=== PATIENT | female | born 1990 | race Caucasian/White ===

== ENCOUNTER 2018-08-04 19:09 | Observation (INO) | payer OTHER ==
[2018-08-04 20:45] LABS: Urine Blood 2+ (NEG); Urine Glucose NEGATIVE (NEG); Urine Protein NEGATIVE (NEG)
[2018-08-04 21:32] LABS: Absolute Monocytes 0.6 K/uL (0.1-1.3); Absolute Neutrophil 6.2 K/uL (1.8-8.0); Basophils % 0.6 % (0-1.3); Eosinophils % 0.7 % (0-4.4); Hematocrit 38.7 % (36.0-45.0); Lymphocytes % 22.4 % (15.3-44.8); Monocytes % 6.6 % (3.3-12.3); RBC Red Blood Cell Count 4.19 M/uL (3.86-4.86)
--- NOTE | 2018-08-04 21:36 | RAD REPORT ---
EXAM DESCRIPTION: US - Transvaginal OB - 08/04/2018 9:09 pm CLINICAL HISTORY: with vaginal bleeding COMPARISON: August 04, 2018 FINDINGS: Gestational sac and pole are again demonstrated within the endometrium. Cardiac activity is not visualized within the embryo on the current examination. [place]-rump length eq uals approximately 4.2 millimeters Estimated gestational age 6 weeks 1 day EDWARD 03/29/2019 The cervical canal has become heterogeneous measuring 1.1 centimeter. The ovaries are normal in size and echotexture An adnexal mass is not seen No significant free fluid IMPRESSION: Since an ultrasound earlier today cardiac activity is no longer visualized within the fe tash pole. Since cardiac activity was seen on the prior ultrasound this is suspicious for demise . However, due to the small size of the embryo it is possible that the cardiac activity is not seen s econdary to technical factors and the embryo is viable. As a precaution it is recommended that the pa tient have a followup endovaginal sonogram in 1 week for re-evaluation.
[2018-08-04] MEDS ORDERED: OXYTOCIN 10 UNIT/ML ML IV ONE (21:56)
[2018-08-04] MEDS ORDERED: ONDANSETRON 4 MG/2 ML VIAL ONE (21:57)
[2018-08-04] MEDS ORDERED: MORPHINE 2 MG/ML SYR ONE (21:57)
[2018-08-04 22:01] LABS: BUN Blood Urea Nitrogen 11 mg/dL (7-18); Bicarbonate 24 mmol/L (21-32); Glucose Level 87 mg/dL (74-106); HCG, Quantitative 2534 mIU/mL (1-3); Potassium 3.8 mmol/L (3.5-5.1); Sodium Level 141 mmol/L (136-145)
[2018-08-04] MEDS ORDERED: OXYTOCIN/LR 0 UNIT/0 ML BAG IV ONE (22:11)
--- NOTE | 2018-08-04 22:57 | ER ---
Nurse's Notes [facility] Name: Sofie Henson Age: 27 yrs Sex: Female : 1990 Arrival Date: 08/04/2018 Time: 19:10 Bed 27 Private MD: Diagnosis: Incomplete spontaneous without complication Presentation: 08/04 19:36 Presenting complaint: Patient states: "I'm and I've been lightly spotting aj since Tuesday. I saw Dr. Moralez this morning and I had a vaginal ultrasound and everything looked okay, but he told me that if the bleeding got worse to come here, it was like a water fall at 6:15 so we came here. I'm having some moderate cramping. " Patient reports that she is currently 6 weeks . Transition of care: patient was not received from another setting of care. Onset of symptoms was August 04, 2018. Risk Assessment: Do you want to hurt yourself or someone else? Patient reports no desire to harm self or others. Initial Sepsis Screen: Does the patient meet any 2 criteria? No. Patient's initial sepsis screen is negative. Does the patient have a suspected source of infection? No. Patient's initial sepsis screen is negative. Care prior to arrival: None. 19:36 Method Of Arrival: Ambulatory [facility] 19:36 Acuity: VERONICA 3 aj1 Triage Assessment: 19:39 General: Appears in no apparent distress. comfortable, Behavior is calm, cooperative, aj1 appropriate for age. Pain: Complains of pain in right lower quadrant and left lower quadrant Pain currently is 7 out of 10 on a pain scale. Quality of pain is described as crampy. Neuro: Level of Consciousness is awake, alert, obeys commands, Oriented to person, place, time, situation. Cardiovascular: Patient's skin is warm and dry. Respiratory: Airway is patent Respiratory effort is even, unlabored, Respiratory pattern is regular, symmetrical. GI: No signs and/or symptoms were reported involving the gastrointestinal system. : Parent/caregiver report the patient having vaginal bleeding that is bright red with clots heavy flow. 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 - Social history:: Smoking status: Patient/guardian denies using tobacco. - Ebola Screening: : Patient denies travel to an Ebola-affected area in the 21 days before illness onset. Screenin:26 Abuse screen: Denies threats or abuse. Denies injuries from another. Nutritional mg2 screening: No deficits noted. Tuberculosis screening: No symptoms or risk factors identified. Fall Risk IV access (20 points). Assessment: 20:25 General: Appears in no apparent distress. comfortable, Behavior is calm, cooperative. mg2 Pain: Complains of pain in abdomen Pain does not radiate. Pain currently is 2 out of 10 on a pain scale. Quality of pain is described as crampy, Pain began gradually, 1 day ago. Neuro: Level of Consciousness is awake, alert, obeys commands, Oriented to person, place, time, situation. Cardiovascular: Capillary refill < 3 seconds Patient's skin is warm and dry. Respiratory: Airway is patent Respiratory effort is even, unlabored, Respiratory pattern is regular, symmetrical. GI: No signs and/or symptoms were reported involving the gastrointestinal system. : Urine is blood tinged, Reports vaginal bleeding that is light flow, spotty, since yesterday. EENT: No signs and/or symptoms were reported regarding the EENT system. Derm: Skin is intact, is healthy with good turgor, Skin is pink, warm \\T\\ dry. normal. Musculoskeletal: Circulation, motion, and sensation intact. Capillary refill < 3 seconds. 23:01 Reassessment: patient agreed to be admitted to the hospital for observation. mg2 Vital Signs: 19:39 BP 126 / 94; Pulse 80; Resp 18; Temp 97.9; Pulse Ox 100% on R/A; Weight 83.91 kg (R); aj1 Height 5 ft. 10 in. (177.80 cm) (R); Pain 7/10; 21:36 BP 127 / 86; Pulse 81; Resp 18; Pulse Ox 100% on R/A; Pain 3/10; mg2 23:42 BP 121 / 78; Pulse 82; Resp 18; Pulse Ox 100% on R/A; Pain 0/10; mg2 19:39 Body Mass Index 26.54 (83.91 kg, 177.80 cm) aj1 ED Course: 19:10 Patient arrived in ED. do 19:37 Triage completed. aj1 19:39 Arm band placed on Patient placed in an exam room. aj1 19:45 Isaías Rodas MD is Attending Physician. tw4 19:58 Isiah Huizar, MALVIN is Primary Nurse. mg2 20:27 Patient has correct armband on for positive identification. Placed in gown. Call light mg2 in reach. Side rails up X2. Pulse ox on. NIBP on. Door closed. Noise minimized. Warm blanket given. 20:27 Inserted saline lock: 20 gauge in right antecubital area, using aseptic technique. mg2 Blood collected. 21:09 US Transvaginal Ob In Process Unspecified. EDMS 22:47 Assist provider with pelvic exam: Set up pelvic tray. Performed by Isaías Rodas MD mg2 Patient tolerated well. moderate vaginal bleeding/clots, no tissues noted. 22:56 Kei Pak MD is Hospitalizing Provider. tw4 23:41 Patient admitted, IV remains in place. mg2 Administered Medications: 21:57 Drug: Zofran 4 mg Route: IVP; Site: right antecubital; mg2 22:50 Follow up: Response: No adverse reaction; Marked relief of symptoms mg2 21:58 Drug: morphine 2 mg Route: IVP; Site: right antecubital; mg2 22:52 Follow up: Response: No adverse reaction; Marked relief of symptoms mg2 23:42 Not Given (Physician Discretion): Pitocin 20 units IV at calculated rate once mg2 Outcome: 22:56 Decision to Hospitalize by Provider. tw4 23:41 Admitted to L \\T\\ D, accompanied by tech, via wheelchair, room 279, with chart, Report mg2 called to MALVIN Garcia 23:41 Condition: stable 23:41 Instructed on the need for admit, Demonstrated understanding of instructions. 08/05 00:12 Patient left the ED. mg2 Signatures: Dispatcher [employer] EDMS Massiel Matamoros RN RN aj1 Erin Torres Terrence, MD MD tw4 Isiah Huizar RN RN mg2
--- NOTE | 2018-08-04 22:57 | EDPHYS ---
Physician Documentation [facility] Name: Sofie Henson Age: 27 yrs Sex: Female : 1990 Arrival Date: 08/04/2018 Time: 19:10 Bed 27 Private MD: ED Physician Isaías Rodas HPI: 08/04 23:35 This 27 yrs old Female presents to ER via Ambulatory with complaints of tw4 Possible Miscarriage. 23:35 The patient presents with vaginal bleeding that is moderate. Onset: The tw4 symptoms/episode began/occurred today. Modifying factors: The symptoms are alleviated by nothing, the symptoms are aggravated by nothing. Associated signs and symptoms: The patient has no apparent associated signs or symptoms. Severity of symptoms: At their worst the symptoms were moderate, in the emergency department the symptoms are unchanged. The patient has not experienced similar symptoms in the past. 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 - Social history:: Smoking status: Patient/guardian denies using tobacco. - Ebola Screening: : Patient denies travel to an Ebola-affected area in the 21 days before illness onset. ROS: 23:35 Positive for vaginal bleeding, Negative for injury or acute deformity, urinary tw4 symptoms, urinary frequency, vaginal itching, menstrual abnormality. 23:35 Constitutional: Negative for fever, chills, and weight loss, Eyes: Negative for injury, pain, redness, and discharge, Cardiovascular: Negative for chest pain, palpitations, and edema, Respiratory: Negative for shortness of breath, cough, wheezing, and pleuritic chest pain, Abdomen/GI: Negative for abdominal pain, nausea, vomiting, diarrhea, and constipation, Back: Negative for injury and pain. 23:35 : Positive for vaginal bleeding, Negative for injury or acute deformity, urinary symptoms, urinary frequency, small amounts, vaginal discharge, vaginal itching. Exam: 23:35 Constitutional: This is a well developed, well nourished patient who is awake, alert, tw4 and in no acute distress. Head/Face: Normocephalic, atraumatic. Chest/axilla: Normal chest wall appearance and motion. Nontender with no deformity. No lesions are appreciated. Cardiovascular: Regular rate and rhythm with a normal S1 and S2. No gallops, murmurs, or rubs. Normal PMI, no JVD. No pulse deficits. Respiratory: Lungs have equal breath sounds bilaterally, clear to auscultation and percussion. No rales, rhonchi or wheezes noted. No increased work of breathing, no retractions or nasal flaring. Abdomen/GI: Soft, non-tender, with normal bowel sounds. No distension or tympany. No guarding or rebound. No evidence of tenderness throughout. Back: No spinal tenderness. No costovertebral tenderness. Full range of motion. MS/ Extremity: Pulses equal, no cyanosis. Neurovascular intact. Full, normal range of motion. Neuro: Awake and alert, GCS 15, oriented to person, place, time, and situation. Cranial nerves II-XII grossly intact. Motor strength 5/5 in all extremities. Sensory grossly intact. Cerebellar exam normal. Normal gait. 23:35 : Pelvic Exam: Speculum exam: moderate bleeding, os that is open. Vital Signs: 19:39 BP 126 / 94; Pulse 80; Resp 18; Temp 97.9; Pulse Ox 100% on R/A; Weight 83.91 kg (R); aj1 Height 5 ft. 10 in. (177.80 cm) (R); Pain 7/10; 21:36 BP 127 / 86; Pulse 81; Resp 18; Pulse Ox 100% on R/A; Pain 3/10; mg2 23:42 BP 121 / 78; Pulse 82; Resp 18; Pulse Ox 100% on R/A; Pain 0/10; mg2 19:39 Body Mass Index 26.54 (83.91 kg, 177.80 cm) aj1 MDM: 19:45 Patient medically screened. tw4 23:38 Differential diagnosis: menorrhea, uterine fibroids. Data reviewed: vital signs, nurses tw4 notes. Data interpreted: Pulse oximetry: is not applicable for this patient encounter. Counseling: I had a detailed discussion with the patient and/or guardian regarding: the historical points, exam findings, and any diagnostic results supporting the discharge/admit diagnosis, lab results, radiology results. Physician consultation: Kei Pak MD was contacted at 21:30, regarding admission, patient's condition, and will see patient in inpatient room. Admission orders: after a detailed discussion of the patient's condition and case, the admit orders are written by me. ED course: Ultrasound reveals 8 weeks fetus with absence of cardiac activity. D/W Dr Pak will admit for further monitoring and observation. 08/04 19:53 Order name: Quantitative Hcg [facility] 08/04 19:53 Order name: Abo/rh Typing [facility] 08/04 19:53 Order name: Basic Metabolic Panel [facility] 08/04 19:53 Order name: CBC with Diff; Complete Time: 21:37 [facility] 08/04 20:21 Order name: Urine Dipstick--Ancillary (enter results) cm6 08/04 20:21 Order name: Urine --Ancillary (enter results) 6 08/04 19:53 Order name: US Transvaginal Ob; Complete Time: 22:09 [facility] 08/04 23:27 Order name: Basic Metabolic Panel EDMS 08/04 23:27 Order name: Basic Metabolic Panel EDMS 08/04 23:27 Order name: CBC with Automated Diff EDMS 08/04 23:27 Order name: CBC with Automated Diff EDMS 08/04 19:53 Order name: Urine Test (obtain specimen); Complete Time: 20:17 [facility] 08/04 19:53 Order name: IV Saline Lock; Complete Time: 20:17 [facility] 08/04 19:53 Order name: Labs collected and sent; Complete Time: 20:17 [facility] 08/04 19:53 Order name: NPO; Complete Time: 20:17 [facility] 08/04 19:53 Order name: Urine Dipstick-Ancillary (obtain specimen); Complete Time: 20:17 [facility] 08/04 20:40 Order name: Labs - recollect needed; Complete Time: 21:20 cm6 Administered Medications: 21:57 Drug: Zofran 4 mg Route: IVP; Site: right antecubital; mg2 22:50 Follow up: Response: No adverse reaction; Marked relief of symptoms mg2 21:58 Drug: morphine 2 mg Route: IVP; Site: right antecubital; mg2 22:52 Follow up: Response: No adverse reaction; Marked relief of symptoms mg2 23:42 Not Given (Physician Discretion): Pitocin 20 units IV at calculated rate once mg2 Disposition: 08/04/18 22:56 Hospitalization ordered by Kei Pak for Inpatient Admission. Preliminary diagnosis is Incomplete spontaneous without complication. - [facility]. - Status is Inpatient Admission. mg2 - Condition is Stable. - Problem is new. - Symptoms are unchanged. UTI on Admission? No Signatures: Dispatcher [employer] EDMS Massiel Matamoros RN RN aj1 Analilia Bo RN RN Isaías Rodas MD MD tw4 Isiah Huizar RN RN mg2 Patsy Hammonds cm6 Corrections: (The following items were deleted from the chart) 23:31 22:56 Hospitalization Ordered by Kei Pak MD for Inpatient Admission. Preliminary mw diagnosis is Incomplete spontaneous without complication. Bed [facility]. Status is Inpatient Admission. Condition is Stable. Problem is new. Symptoms are unchanged. UTI on Admission? No. tw4 08/05 00:12 08/04 23:31 08/04/2018 22:56 Hospitalization Ordered by Kei Pak MD for Inpatient mg2 Admission. Preliminary diagnosis is Incomplete spontaneous without complication. Bed requested [facility]. Status is Inpatient Admission. Condition is Stable. Problem is new. Symptoms are unchanged. UTI on Admission? No. mw
[2018-08-04] MEDS ORDERED: ACETAMINOPHEN 500 MG TAB PO PRN (23:26)
[2018-08-04] MEDS ORDERED: MORPHINE 4 MG/ML SYR IV PRN (23:27)
[2018-08-05 00:50] VITALS: BMI 26.5
[2018-08-05 05:36] LABS: Absolute Monocytes 0.6 K/uL (0.1-1.3); Basophils % 0.6 % (0-1.3); Eosinophils % 1.6 % (0-4.4); Hematocrit 37.6 % (36.0-45.0); Lymphocytes % 29.2 % (15.3-44.8); MPV 9.9 fL (7.6-11.3); Monocytes % 8.9 % (3.3-12.3); RBC Red Blood Cell Count 4.11 M/uL (3.86-4.86)
[2018-08-05 05:45] LABS: BUN Blood Urea Nitrogen 8 mg/dL (7-18); Bicarbonate 24 mmol/L (21-32); Glucose Level 89 mg/dL (74-106); Potassium 3.5 mmol/L (3.5-5.1); Sodium Level 142 mmol/L (136-145)
--- NOTE | 2018-08-05 07:42 | P.PN ---
Date of Service: 08/05/18 Less cramping, passed one clot. P-Will repeat US this am to evaluate viability and or retained tissue if non- viable.
[2018-08-05] MEDS ORDERED: Ringers Lactate 1,000 ML IV SCH (09:00)
--- NOTE | 2018-08-05 09:10 | RAD REPORT ---
EXAM DESCRIPTION: US - Transvaginal OB - 08/05/2018 8:28 am CLINICAL HISTORY: with vaginal bleeding COMPARISON: August 04, 2018 FINDINGS: The uterus measures 7 x 4 x 5 centimeters. The gestational sac has migrated into endometr ium of the uterine body. Small pole has become less distinct. Cardiac activity is not visualize d. Ovaries unremarkable. Right and left adnexal unremarkable. No significant free fluid is seen. IMPRESSION: Incomplete
[2018-08-05] MEDS ORDERED: OXYTOCIN 10 UNIT/ML ML IV ONE ×3 (09:42→10:43)
[2018-08-05] MEDS ORDERED: METHYLERGONOVINE 0.2MG/ML AMP IM ONE ×3 (09:43→10:33)
[2018-08-05] MEDS ORDERED: LIDOCAINE 2% MPF 5 ML VIAL ONE (10:00)
[2018-08-05] MEDS ORDERED: DOXYCYCLINE IVPB ONE (10:00)
[2018-08-05] MEDS ORDERED: FENTANYL CITR 100 MCG/2 ML ONE (10:00)
[2018-08-05] MEDS ORDERED: PROPOFOL 200 MG/20 ML VIAL IV ONE (10:00)
[2018-08-05] MEDS ORDERED: NA CHLORIDE 0.9% IVPB ONE (10:00)
[2018-08-05] MEDS ORDERED: KETOROLAC 30 MG/ML INJ ONE ×2 (10:01→11:44)
[2018-08-05] MEDS ORDERED: DEXAMETHASONE 10 MG/ML VIAL ONE (10:01)
[2018-08-05] MEDS ORDERED: ONDANSETRON 4 MG/2 ML VIAL ONE ×2 (10:16)
[2018-08-05] MEDS ORDERED: SILVER NITRATE 1 APPL TOP ONE (10:22)
--- NOTE | 2018-08-05 10:23 | P.BOP ---
Preoperative diagnosis: Incomplete AB Postoperative diagnosis: same Primary procedure: D&C Estimated blood loss: Less than 10ml Specimen: POC Anesthesia: General Complications: None Transferred to: Recovery Room Condition: Good
[2018-08-05] MEDS: FENTANYL CITR 100 MCG/2 ML ONE ×2 (10:40→10:49)
[2018-08-05 11:10] VITALS: O2SAT 98
[2018-08-05] MEDS ORDERED: KETOROLAC 30 MG/ML INJ IM ONE ×2 (11:45→16:04)
--- NOTE | 2018-08-05 12:17 | CON ---
A 27-year-old, 3, para 0, 6 weeks' gestation, apparent possible spontaneous incomplete aborti on. Apparently, the patient was seen in Dr. Moralez's office, put her on progesterone and baby asp irin in an attempt to prevent spontaneous AV. She started bleeding, went to the emergency room early in the day, had an ultrasound, showed heart tones, came back another ultrasound more confusing, but it could not definitely say nonviable and suggested another ultrasound at later date. The patient was stable at that time. Admission hematocrit of 38 or greater. No significant bleeding at that point according to Dr. Rodas, ER physician. She was admitted, has been stable overnight. No c urrent bleeding and Dr. Moralez has checked back in and will take over as this is his patient. LISA/CORINA Voice ID: [id number] Report ID: [id number]
--- NOTE | 2018-08-05 12:53 | PREOPHP ---
Date of Admission: 08/04/2018 History Of Present Illness: Ms. Henson is a 27-year-old female, 3, para 0-0 -2-0 at approximately 6-7 weeks gestation. She has been followed by me with threatened miscarriage. Had an ultrasound yesterday morning after some bleeding that showed a viable with cardiac motion noted. Unfortunately, bleeding progressed through the emergency room last night. Heart beat was not able to be detected, but the radiologist read it as being inconclusive because of gestational age. This morning, however, repeat ultrasound shows no gestational sac and only small cystic area i n the lower uterine segment consistent with demise, an intrauterine and incomplete . S he was bleeding and cramping some this morning. After discussion, patient elected to proceed with di latation and curettage for completion of an incomplete . Past Medical History: Includes prior breast augmentation surgery, prior D and C. Medications: She is on no medications on a regular basis currently other than Prometrium and prenata l vitamin. She stopped Lovenox 2 days ago. Allergies: SHE HAS NO KNOWN ALLERGIES. Social History: She does not smoke. Family History: Noncontributory. Review of Systems: She reports no recent cough, cold, no fever, or chills. She has had allergy symptoms. She denies an y bowel or bladder issues. Physical Examination: General: Reveals pleasant female, in no apparent distress. Neck: Supple without adenopathy or thyromegaly. Lungs: Clear. Cardiac: Regular rate and rhythm without murmurs. Breasts: Not examined. Abdomen: Without organosplenomegaly. Pelvic: Some blood present. Bimanual, no abnormalities. Extremities: No cyanosis, clubbing, or edema. Impression: Incomplete . Plan: We will perform dilatation and curettage for completion of . Risks and benefits are d iscussed and the patient has signed operative permit in my presence. NASRA/CORINA Voice ID: [id number]
--- NOTE | 2018-08-05 12:56 | OP ---
Surgeon: Obie Moralez MD Preoperative Diagnosis: A 6+ week with incomplete . Procedure: Dilatation and curettage of the uterine endometrium. Postoperative Diagnosis: A 6+ week with incomplete . Description Of Procedure: After satisfactory level of general anesthesia was obtained, the patient w as prepped and draped in the usual fashion for vaginal surgery in high leg holders. A weighted specu lum was placed into the posterior vagina. Cervix visualized and grasped with single-tooth tenaculum, dilated to accept an 8 curved suction curette productive of moderate amount of tissue. This was fol lowed by sharp curettage and then suction curettage. The patient was awakened, taken to recovery [facility] in satisfactory condition. Estimated total blood loss less than 10 mL. NASRA/CORINA Voice ID: [id number] Report ID: [id number]
--- NOTE | 2018-08-05 13:02 | DS ---
Diagnosis: Incomplete . Complications: None. Procedure: Dilatation and curettage for completion of . Hospital Course: The patient is a 27-year-old female, 3, para 0-0-2-0 at a pproximately 6+ weeks gestation with bleeding and progression by ultrasound of with loss of heart motion and then collapsed gestational sac. With this, we proceeded with curettage of the endometrium. She was dismissed to be seen back in my office in 2 weeks with usual post D and C acti vity restrictions. She is AB positive blood type. Lab work included admission hemoglobin and hematoc rit of 13.1, and 37.6 and 38.7. She was dismissed with a prescription for Cytotec 100 mcg 1 q.6 hour s #4. NASRA/CORINA Voice ID: [id number] Report ID: [id number]
[2018-08-05 16:19] VITALS: BP 99/64; TEMP 98.2
== END 2018-08-05 12:20 | disposition home or self-care (01) ==
LOC: ER 19:09 → 2ND-WC 23:43
PROVIDERS: ADMIT Specialist; ATTEND Specialist
PROC: 10D17Z9 Manual Extraction of Products of Conception, Retained, Via Natural or Artificial Opening (ICD-10-PCS; principal; 2018-08-05 09:48)
DX: O03.4 Incomplete spontaneous abortion without complication (principal)
CPT/HCPCS: 36415; 76817; 80048; 81003; 81025; 84702; 85025; 86850; 86900; 86901; 88305; 96374; 96375; 99285; G0378; J1100; J2210; J2270; J2405; J2590; J2704; J3010